=== PATIENT | female | born 1935 | race Two or more races ===

== ENCOUNTER 2018-08-16 09:59 | Outpatient (CLI) | payer OTHER | END 2018-08-16 10:05 | disposition home or self-care (01) | LOC: TOM 09:59 | DX: C50.112 Malignant neoplasm of central portion of left female breast (principal); D51.8 Other vitamin B12 deficiency anemias; D51.3 Other dietary vitamin B12 deficiency anemia; E03.8 Other specified hypothyroidism; F33.8 Other recurrent depressive disorders; K29.50 Unspecified chronic gastritis without bleeding; K58.9 Irritable bowel syndrome, unspecified | CPT/HCPCS: 71260; 74177; Q9965 ==

== ENCOUNTER 2019-09-16 12:02 | Outpatient (CLI) | payer OTHER | END 2019-09-16 12:08 | disposition home or self-care (01) | LOC: LAB 12:02 | DX: N20.0 Calculus of kidney (principal) ==

== ENCOUNTER 2019-09-22 08:44 | Outpatient (CLI) | payer OTHER | END 2019-09-22 08:50 | disposition home or self-care (01) | LOC: TOM 08:44 | DX: C50.112 Malignant neoplasm of central portion of left female breast (principal); D51.8 Other vitamin B12 deficiency anemias; D51.3 Other dietary vitamin B12 deficiency anemia; E03.8 Other specified hypothyroidism; F33.8 Other recurrent depressive disorders; K29.50 Unspecified chronic gastritis without bleeding; K58.8 Other irritable bowel syndrome; Z12.31 Encounter for screening mammogram for malignant neoplasm of breast | CPT/HCPCS: 71260; 74177; 76641; 77067; Q9965 ==

== ENCOUNTER → 2019-10-07 | Outpatient (CLI) | payer OTHER | END | disposition home or self-care (01) | LOC: NUCLEAR 14:00 | DX: C50.112 Malignant neoplasm of central portion of left female breast (principal); D51.8 Other vitamin B12 deficiency anemias; D51.3 Other dietary vitamin B12 deficiency anemia; M81.0 Age-related osteoporosis without current pathological fracture ==